=== PATIENT | female | born 1980 | race Caucasian/White ===

== ENCOUNTER 2024-12-24 17:50 | Emergency (ER) | payer MEDICAID, OTHER ==
[~2024-12-24] VITALS: Ht 172.7 cm; Wt 112.4 kg
[~2024-12-24 17:50] MED LIST: IBUP-1051 PO
[2024-12-24 17:56] VITALS: BP 134/84; PULSE 85; RESP 18; O2SAT 98
[2024-12-24] MEDS: TETanus/Pertussis (Acell)/Diphther VAC/PF (Tdap-Adult) 0.5ml syringe IMVAC ONE (19:10)
[2024-12-24] MEDS ORDERED: CEPH-585 PO (19:29)
--- NOTE | 2024-12-24 19:29 | Physician Documentation ---
History of Present Illness ~ Chief Complaint: See Chief Complaint Stated Complaint: STEPPED ON A NAIL Time Seen by MD: 18:51 OK to notify your PCP?: Yes Primary Medical Doctor: NO PMD Source: patient Mode of Arrival: POV Exam Limitations: no limitations HPI Reports left foot pain after she stepped on a nail and it went through her boot into her foot and came back out. She is unsure when her last tetanus shot is. She is not sure how deep the nail went either. She reports that she was outside working on a fence during this time. Medication Reconciliation Allergies: Coded Allergies: Penicillins (Verified Allergy, Unknown, 07/26/14) Scheduled Cephalexin*Monohydrate* (Keflex*), 1 CAP PO Q12H Ibuprofen* (Motrin*), 800 MG PO Q8H Past Medical History Past Medical History: No Pertinent History Past Surgical History: cholecystectomy Alcohol Use: None Drug Use: none Lives with: Family Lives In: Home Review of Systems All Other Systems at this time: Reviewed and Negative Physical Exam Vital Signs: RN Vital Signs have been reviewed: Yes, Temperature: 97.1, Source: Temporal, Heart Rate: 85, Respiratory Rate: 18, BP: 134/84, Pulse Oximetry: 98, Weight: 112.400 Oxygen Flow Rate: 0 Pulse Oximetry Reflects: adequate oxygenation Physical Exam General: Alert, no distress. HEENT: No injection, moist mucous membranes. Neck: Full range of motion. Respiratory: No respiratory distress, equal chest rise and fall. Chest: No accessory muscle use. Cardiovascular: Regular rate and rhythm. Gastrointestinal: Nondistended. Extremities: Normal range of motion, no deformity. Neurologic: Oriented x4. Psychiatric: Normal mood and affect. Skin: Puncture edy to the ball of her left foot. No erythema or drainage. Progress Results/Orders Reviewed/noted all lab results: Yes Results/Orders Completed Orders - [employer] Tetanus/Pertuss/Diph Acell/Pf (Boostrix (12/24/24 18:55) Cephalexin Capsule (Keflex Capsule) (12/24/24 18:55) Medications Received in ER Medications (Trade) Dose Ordered Sig/Harvey Route PRN Reason Start Time Stop Time Status Last Admin Dose Admin (Boostrix vaccine syringe) 0.5 ml ONCE ONCE IMVAC 12/24/24 18:55 12/24/24 18:56 DC 12/24/24 19:10 0.5 ML (Keflex capsule) 500 mg ONCE ONCE PO 12/24/24 18:55 12/24/24 18:56 DC 12/24/24 19:10 500 MG Vital Signs 12/24/24 12/24/24 17:56 19:34 Temp 97.1 97.1 Pulse 85 Resp 18 B/P (MAP) 134/84 Pulse Ox 98 O2 Flow Rate 0 Medical Decision Making Additional information obtaine: old records Findings She reports stepping on a nail when she was outside working on a fence and it went through her boot into her foot. We updated her tetanus vaccine while she was here in the department. I prophylactically put her on Keflex prevent any infection as we do not know how deep the nail went into her foot. First dose of Keflex was given here in the department the rest was sent to the pharmacy. She is given follow up instructions as well as discharge instructions. Differential Dx:Considerations: Include: Abscess, Atopic dermatitis, Varicella Additional Comment Cellulitis, fracture, neurovascular injury. Departure Disposition: 01 HOME / SELF CARE / HOMELESS Impression: Primary Impression: Puncture wound Condition: Stable Discharge Instructions: Puncture Wound, [id number] Additional Instructions: You were given your tetanus vaccine today. Please take all antibiotics as prescribed and finish the course. Return back here for any new or worsening symptoms. Referrals: NO PRIMARY CARE PROVIDER (PCP) Prescriptions Cephalexin*Monohydrate* (Keflex*) 500 Mg Capsule 1 CAP PO Q12H for 10 Days, #20 CAP Prov: NATALIE VELÁSQUEZ 12/24/24 Education Educated: Patient Educated regarding: diagnosis, treatment, prognosis, need for follow up Additional Comment Medical Screen Exam This patient recieved a medical screening examination. After reviewing the individual's medical complaints with presenting symptoms and performing an appropriate physical examination, it was determined that no immediate life- threatening emergency medical condition is present. This individual is also not a women having contractions. Signature Scribe Signature: . Attestation: Scribed for Natalie Velásquezp by Natalie Barker NP . 12/24/24 23:44 Parts of this note were created using [employer] voice recognition software program. While efforts were made to correct any mistakes made by this voice recognition software program, nonsensical phrases may remain in this note. In addition, there may be errors and syntax, grammar, content and spelling. NATALIE VELÁSQUEZ [facility] Dec 24, 2024 19:29
[2024-12-24 19:34] VITALS: TEMP 97.1
== END 2024-12-24 19:42 | disposition home or self-care (01) ==
LOC: ER 17:50
DX: S91.331A Puncture wound without foreign body, right foot, initial encounter (principal); Z88.0 Allergy status to penicillin; Z90.49 Acquired absence of other specified parts of digestive tract; W22.8XXA Striking against or struck by other objects, initial encounter; Y93.89 Activity, other specified; Y92.89 Other specified places as the place of occurrence of the external cause; Y99.8 Other external cause status
CPT/HCPCS: 90471; 90715; 99283